=== PATIENT | female | born 1960 | race African-American/Black ===

== ENCOUNTER 2024-02-25 12:35 | Outpatient (CLI) | payer OTHER | END 2024-02-25 12:36 | disposition home or self-care (01) | LOC: CSHWCC 12:35 | PROVIDERS: ATTEND Nurse Practitioner Family | DX: T81.329D Deep disruption or dehiscence of operation wound, unspecified, subsequent encounter (principal); I73.9 Peripheral vascular disease, unspecified; I50.22 Chronic systolic (congestive) heart failure | CPT/HCPCS: 11042; 97605; G0463; 99213 ==

== ENCOUNTER 2024-03-04 13:09 | Outpatient (CLI) | payer OTHER | END 2024-03-04 13:10 | disposition home or self-care (01) | LOC: CSHWCC 13:09 | PROVIDERS: ATTEND Nurse Practitioner Family | DX: T81.329D Deep disruption or dehiscence of operation wound, unspecified, subsequent encounter (principal); I50.22 Chronic systolic (congestive) heart failure; I73.9 Peripheral vascular disease, unspecified | CPT/HCPCS: 11042; 11045 ==

== ENCOUNTER 2024-03-11 13:20 | Outpatient (CLI) | payer OTHER | END 2024-03-11 13:21 | disposition home or self-care (01) | LOC: CSHWCC 13:20 | PROVIDERS: ATTEND Nurse Practitioner Family | DX: T81.329D Deep disruption or dehiscence of operation wound, unspecified, subsequent encounter (principal); I73.9 Peripheral vascular disease, unspecified; I50.22 Chronic systolic (congestive) heart failure | CPT/HCPCS: 11042 ==

== ENCOUNTER 2024-03-18 15:18 | Outpatient (CLI) | payer OTHER | END 2024-03-18 15:19 | disposition home or self-care (01) | LOC: CSHWCC 15:18 | PROVIDERS: ATTEND Nurse Practitioner Family | DX: T81.329D Deep disruption or dehiscence of operation wound, unspecified, subsequent encounter (principal); I73.9 Peripheral vascular disease, unspecified; I50.22 Chronic systolic (congestive) heart failure | CPT/HCPCS: 11042; 97605 ==

== ENCOUNTER 2024-03-25 08:58 | Outpatient (CLI) | payer OTHER | END 2024-03-25 08:59 | disposition home or self-care (01) | LOC: CSHWCC 08:58 | PROVIDERS: ATTEND Nurse Practitioner Family | DX: T81.329D Deep disruption or dehiscence of operation wound, unspecified, subsequent encounter (principal); I73.9 Peripheral vascular disease, unspecified; I50.22 Chronic systolic (congestive) heart failure | CPT/HCPCS: 87070; 87077; 87186; 87205; G0463; 99213 ==

== ENCOUNTER 2024-03-25 09:50 | Emergency (ER) | payer OTHER ==
[2024-03-25] MEDS ORDERED: Furosemide 40 MG (4 mL) VIAL ONE (10:53)
[2024-03-25 11:12] LABS: Hematocrit 25.4 % (34.9-44.5); Mean Corpuscular HGB CONC 31.5 g/dL (32.0-36.0); Mean Corpuscular Hemoglobin 25.6 pg (27.0-33.0); Mean Corpuscular Volume 81.4 fL (81.6-98.3); Mean Platelet Volume 10.4 fL (7.4-10.4); Platelet Count 433 10x3/uL (150-450); RBC Distribution Width 17.5 % (11.5-14.5); Red Blood Cell (RBC) Count 3.12 10x6/uL (3.90-5.03); White Blood Cell (WBC) Count 7.3 10x3/uL (3.5-10.5)
[2024-03-25 11:13] LABS: MDiff Complete? YES
[2024-03-25 11:29] LABS: ALT (SGPT) 25 U/L (8-55); AST (SGOT) 19 U/L (5-34); Albumin 2.5 g/dL (3.4-4.8); Alkaline Phosphatase 168 U/L (40-110); Anion Gap 13 mmol/L (10-20); BUN (Urea Nitrogen) 8 mg/dL (9.8-20.1); Bilirubin, Total 0.6 mg/dL (0.2-1.2); Calc. Creatinine Clearance 0 mL/min (70-130); Calcium 9.1 mg/dL (7.8-10.44); Carbon Dioxide 23 mmol/L (23-31); Chloride 102 mmol/L (98-107); Estimated GFR 86; Globulin 4.7 g/dL (2.4-3.5); Glucose 108 mg/dL (80-115); Potassium 3.6 mmol/L (3.5-5.1); Protein, Total 7.2 g/dL (5.8-8.1); Sodium 134 mmol/L (136-145)
[2024-03-25 11:31] LABS: Troponin I Less than 0.010 ng/mL (< 0.028)
[2024-03-25 12:02] LABS: Band 1 % (5-11); Eosinophils 1 % (0-10); Lymphocytes 20 % (21-51); Monocytes 3 % (0-10); Neutrophil 75 % (42-75)
[2024-03-25 12:04] LABS: Anisocytosis SLIGHT = 6-15 cells (100X) (0-5/hpf); Hypochromia SLIGHT = 6-15 cells (100X) (0-5/hpf); Microcytosis SLIGHT = 6-15 cells (100X) (0-5/hpf); Platelet Adequacy Comment Appears Increased; Polychromasia SLIGHT = 2-3 cells (100X) (0-2/hpf)
[2024-03-25 12:32] LABS: Bilirubin Neg (Negative); Blood, Urine Negative (Negative); Clarity Clear (Clear); Glucose, Urine (Dipstick) Normal (Negative); Ketone, Urine Negative (Negative); Leukocyte Negative (Negative); Nitrite Negative (Negative); Protein, Urine (Dipstick) Negative (Neg-Trace); Urobilinogen Normal mg/dL (Less than 2)
[2024-03-25 13:07] LABS: CAUTI Indications for Culture Dysuria,urgency,freq; RBC/HPF None Seen HPF (0-3); WBC/HPF None Seen HPF (0-3)
[2024-03-25 13:08] LABS: Bacteria/HPF Rare-Few HPF (None Seen); Urine Culture Reflex No No
== END 2024-03-25 13:33 | disposition home or self-care (01) ==
LOC: CSHERS 09:50
DX: R60.0 Localized edema (principal); I11.0 Hypertensive heart disease with heart failure; I50.9 Heart failure, unspecified; G62.9 Polyneuropathy, unspecified
CPT/HCPCS: 71045; 80053; 81001; 83605; 83880; 84484; 85025; 87040; 87076; 87077; 87149 ×2; 87186; 87428; 93005; 96374; 99285; J1940; 36415; 93010

== ENCOUNTER 2024-04-16 14:59 | Outpatient (CLI) | payer OTHER | END 2024-04-16 15:00 | disposition home or self-care (01) | LOC: CSHWCC 14:59 | PROVIDERS: ATTEND Nurse Practitioner Family | DX: T81.329D Deep disruption or dehiscence of operation wound, unspecified, subsequent encounter (principal); I73.9 Peripheral vascular disease, unspecified; I50.22 Chronic systolic (congestive) heart failure | CPT/HCPCS: 11042; 11045 ==

== ENCOUNTER 2024-04-22 11:38 | Outpatient (CLI) | payer OTHER | END 2024-04-22 11:39 | disposition home or self-care (01) | LOC: CSHWCC 11:38 | PROVIDERS: ATTEND Nurse Practitioner Family | DX: T81.329D Deep disruption or dehiscence of operation wound, unspecified, subsequent encounter (principal); I73.9 Peripheral vascular disease, unspecified; I50.22 Chronic systolic (congestive) heart failure | CPT/HCPCS: 11042 ==

== ENCOUNTER 2024-12-02 15:17 | Outpatient (CLI) | payer OTHER | END 2024-12-02 15:18 | disposition home or self-care (01) | LOC: CSHWCC 15:17 | PROVIDERS: ATTEND Nurse Practitioner Family | DX: I70.212 Atherosclerosis of native arteries of extremities with intermittent claudication, left leg (principal); L97.122 Non-pressure chronic ulcer of left thigh with fat layer exposed; I50.22 Chronic systolic (congestive) heart failure; Z89.612 Acquired absence of left leg above knee | CPT/HCPCS: 11042 ==

== ENCOUNTER 2024-12-09 14:09 | Outpatient (CLI) | payer OTHER | END 2024-12-09 14:10 | disposition home or self-care (01) | LOC: CSHWCC 14:09 | PROVIDERS: ATTEND Nurse Practitioner Family | DX: I70.241 Atherosclerosis of native arteries of left leg with ulceration of thigh (principal); I70.212 Atherosclerosis of native arteries of extremities with intermittent claudication, left leg; L97.122 Non-pressure chronic ulcer of left thigh with fat layer exposed; I50.22 Chronic systolic (congestive) heart failure; Z89.612 Acquired absence of left leg above knee | CPT/HCPCS: 99212; G0463 ==